=== PATIENT | female | born 1975 | race Caucasian/White ===

== ENCOUNTER 2021-06-24 07:19 | Emergency (ER) | payer OTHER ==
[~2021-06-24] VITALS: Ht 167.6 cm; Wt 87.1 kg
[2021-06-24 07:41] LABS: *BILIRUBIN,URIN NEGATIVE (NEGATIVE); *BLOOD, URINE 2+ (NEGATIVE); *CLARITY,URINE CLEAR (CLEAR); *COLOR,URINE YELLOW (YELLOW); *KETONES,URINE NEGATIVE (NEGATIVE); *UROBILINOGEN,URINE 0.2 E.U./dl (NORMAL); LEUKOCYTE ESTERASE ,URINE NEGATIVE (NEGATIVE); NITRITE, URINE NEGATIVE (NEGATIVE); UGLUCOSE NEGATIVE (NEGATIVE)
[2021-06-24] MEDS ORDERED: METH4TAB3 PO (07:59)
--- NOTE | 2021-06-24 08:10 | NUR ---
Gave pt RX and d/c instructions, pt verbalized understanding.
[2021-06-24 12:38] LABS: BACTERIA,URINE MODERATE /HPF (NONE SEEN); CALCIUM OXALATE CRYSTALS,UR MODERATE /HPF (NONE SEEN); SQUAMOUS EPITHELIAL CELL,UR FEW /HPF (NONE SEEN)
== END 2021-06-24 08:13 | disposition home or self-care (01) ==
LOC: ER 07:19
DX: L50.9 Urticaria, unspecified (principal); R21 Rash and other nonspecific skin eruption; Z87.440 Personal history of urinary (tract) infections
CPT/HCPCS: 87086; A4663